=== PATIENT | female | born 1945 | race Caucasian/White ===

== ENCOUNTER 2023-09-14 14:49 | Outpatient (CLI) | payer MEDICARE, BC | END 2023-09-14 23:59 | disposition home or self-care (01) | LOC: RAD 14:49 | PROVIDERS: ATTEND Psychiatry & Neurology Neurology | DX: R13.12 Dysphagia, oropharyngeal phase (principal); G12.22 Progressive bulbar palsy; G12.21 Amyotrophic lateral sclerosis; R47.1 Dysarthria and anarthria | CPT/HCPCS: 74230 ==